=== PATIENT | male | born 1985 | race Caucasian/White ===

== ENCOUNTER 2018-02-03 16:12 | Emergency (ER) | payer MEDICAID ==
[2018-02-03 17:09] VITALS: BP 130/78
[2018-02-03] MEDS ORDERED: Tetan/Diph/Pertus SYR(Tdap)* 0.5 ML SYR(BOOSTRIX) use SYR IM ONE (17:43)
[2018-02-03] MEDS ORDERED: Rabies VIRUS VACCINE (Imovax)* 2.5 UNIT/ML 1 ML IM ONE (17:43)
[2018-02-03] MEDS ORDERED: Rabies Immune Globulin 2 ML* 150 UNITS/ML VIAL IM ONE (17:44)
[2018-02-03] MEDS ORDERED: Rabies Immune Globulin 10 ML* 150 UNIT/ML VIAL IM ONE (17:44)
--- NOTE | 2018-02-03 20:11 | UC ---
Cheryl Arreguin Elizabeth, scribed for Mejia Sneed MD on 02/03/18 at 1722 . Bite Injury/Animal HPI - HPI Summary HPI Summary: This patient is a 32 year old M presenting to [facility] with a chief complaint of raccoon bite to his right thumb since 1 day ago. The patient reports that he had been trying to remove a baby raccoon from a trail when it bit him. 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 The patient notes that he thought it was strange that the animal was out on its own, in the open during the daytime. The patient rates the pain 0/10 in severity. Symptoms aggravated by nothing. Symptoms alleviated by nothing. The patient claims to have all of the symptoms of rabies but did not specify which. - History of Current Complaint Chief Complaint: UCBiteInjury Stated Complaint: RABIES EXPOSURE Time Seen by Provider: 02/03/18 17:11 Hx Obtained From: Patient Severity Currently: None Pain Intensity: 0 Pain Scale Used: 0-10 Numeric Onset/Duration: Sudden Onset, Lasting Days - 1 day Type of Bite: Wild Animal - raccoon Has Animal Been Immunized?: No Character: Puncture Aggravating Factor(s): Nothing Alleviating Factor(s): Nothing Associated Signs And Symptoms: Positive: Negative Animal Available for Observation: No Animal Control Notified: Yes - Allergies/Home Medications Allergies/Adverse Reactions: Allergies Allergy/AdvReac Type Severity Reaction Status Date / Time No Known Allergies Allergy Verified 05/05/15 14:25 PMH/Surg Hx/FS Hx/Imm Hx Previously Healthy: Yes - Surgical History Surgical History: None - Family History Known Family History: Positive: None - patient denies relevant FHx - Social History Alcohol Use: Occasionally Substance Use Type: None Substance Use Comment - Amount & Last Used: occassional Smoking Status (MU): Current Every Day Smoker Review of Systems Constitutional: Negative - negative fever Skin: Other - small wound to right thumb ENT: Negative - negative epistaxis Gastrointestinal: Negative - negative vomiting All Other Systems Reviewed And Are Negative: Yes Physical Exam - Summary Physical Exam Summary: General: well-appearing, no pain distress Skin: warm, color reflects adequate perfusion, dry, 2mm wound on the right thumb adjacent to the fingernail, no bleeding, no erythema Head: normal Eyes: EOMI, SHELDON ENT: normal Neck: supple, nontender Respiratory: CTA, breath sounds present Cardiovascular: RRR Abdomen: soft, nontender Bowel: present Musculoskeletal: normal, strength/ROM intact Neurological: sensory/motor intact, A&O x3 Psychological: affect/mood appropriate Triage Information Reviewed: Yes Vital Signs: Initial Vital Signs Temp 97.9 F 02/03/18 17:05 Pulse 59 02/03/18 17:05 Resp 12 02/03/18 17:05 BP 130/78 02/03/18 17:05 Pulse Ox 100 02/03/18 17:05 Vital Signs Reviewed: Yes Bite Injury Course/Dx - Course Course Of Treatment: PATIENT GIVEN RIG IN RIGHT THUMB, THE SITE OF THE WOUND, BY MYSELF. THE REMAINUNG RID, RABIES VACCINE AND TDAP ALSO GIVE. RX AUGMENTIN. F/U [facility]. GET RECHECKED SOONER IF WORSE. - Differential Dx/Diagnosis Provider Diagnoses: RACCON BITE RIGHT THUMB. POSSIBLE RABIES EXPOSURE Discharge - Sign-Out/Discharge Documenting (check all that apply): Discharge/Admit/Transfer - Discharge Plan Condition: Stable Disposition: HOME Prescriptions: Amoxicillin/Clavulanate TAB* [Augmentin TAB 875*] 875 mg PO BID #20 tab Patient Education Materials: Rabies Vaccine (By injection), Rabies Immune Globulin (By injection), Animal Bite (ED) Referrals: [facility] [Outside] [facility] [Outside] Additional Instructions: FOLLOW UP WITH THE [facility]. GET RECHECKED FOR ANY WORSENING OF YOUR CONDITION OR QUESTIONS OR CONCERNS. - Billing Disposition and Condition Condition: STABLE Disposition: Home The documentation as recorded by the Cheryl solo Elizabeth accurately reflects the service I personally performed and the decisions made by me, Mejia Sneed MD.
== END 2018-02-03 18:29 | disposition home or self-care (01) ==
LOC: UCEAST 16:12
DX: S61.031A Puncture wound without foreign body of right thumb without damage to nail, initial encounter (principal); W55.51XA Bitten by raccoon, initial encounter; Y93.01 Activity, walking, marching and hiking; Y92.89 Other specified places as the place of occurrence of the external cause; Z23 Encounter for immunization; F17.200 Nicotine dependence, unspecified, uncomplicated
CPT/HCPCS: 90375; 90471; 90715; 96372; 99212; G0463